=== PATIENT | female | born 1990 | race African-American/Black ===

== ENCOUNTER → 2017-06-12 18:00 | Observation (INO) ==
--- NOTE | 2017-06-12 15:56 | OB/GYN Progress Note ---
Date of Encounter: 06/12/17 Time of Encounter: 17:30 - Assessment and Plan (1) with 21 completed weeks gestation Current Visit: Yes Status: Acute Asymptomatic since arrival Reports positive movement No vaginal bleeding or loss of fluid (2) Elevated blood pressure affecting in second trimester, antepartum Current Visit: Yes Status: Acute Patient blood pressure is 140/80 at home, here as been 100's/70's Asymptomatic since arrival Reports positive movement No vaginal bleeding or loss of fluid Subjective - Subjective Principal diagnosis: gestation 21 weeks Interval history: Pt is a 26F at 21+5 GA presenting to L&D from the ED for evaluation of symptoms of double vision and spinning that occurred prior to arrival with elevated blood pressure. 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 She states her nursing preceptor took her blood pressure and it was 140/80 and squad was called. Since being in L&D patient denies any symptoms or concerns. Vision changes and elevated blood pressure have resolved. Patient denies headache, nausea, vomiting, abdominal pain, and edema. Reports positive movement. No vaginal bleeding or loss of fluid. Patient states she has also been under added stress including black friday shopping and school finals this week. Admits to not drinking plenty of water. I examined this patient and my medical decision-making was reviewed with the Resident Physician. I agree with the documented findings, disposition and treatment plan as described except to the extent set forth below. AKOSUA Bhat Antepartum ROS: new complaints, movement normal, no loss of fluid, no vaginal bleeding, no contractions Objective - Exam FHR: auscultation normal FHR comments: FHT's in the 150s Auscultation: bilateral: normal Abdomen: Present: normal appearance, soft, gravid Uterus: Present: normal, firm. Absent: tenderness
[2017-06-12 16:32] LABS: Bilirubin,Urine Negative (Negative); Blood,Urine Negative (Negative); Clarity,Urine Clear (Clear); Color,Urine Yellow (Yellow); Glucose,Urine (UA) Normal (Normal); Ketones,Urine Negative (Negative); Leukocyte Esterase,Urine Negative (Negative); Nitrite,Urine Negative (Negative); PH,Urine 6.5 pH Units (5.0-8.0); Protein,Urine Negative (Neg-Trace); Specific Gravity,Urine 1.005 (1.010-1.025); Urobilinogen,Urine Normal (Normal)
[2017-06-12 16:50] LABS: Basophils % 0.2 %; Eosinophils # 0.1 K/mcL (0.0-0.6); Hematocrit 31.6 % (35.3-44.9); Hemoglobin 9.8 g/dL (11.5-15.4); Immature Granulocytes % 0.7 % (0-4); Lymphocytes # 2.1 K/mcL (0.6-4.6); Lymphocytes % 22.7 %; Mean Corpuscular Hemoglobin 24.1 pg (28.0-33.3); Mean Corpuscular Volume 77.8 fL (83.0-100.0); Mean Platelet Volume 9.3 fL (9.4-12.4); Monocytes # 0.8 K/mcL (0.0-1.3); Monocytes % 8.2 %; Neutrophils # 6.2 K/mcL (1.6-8.9); Platelet Count 303 K/mcL (140-400); Red Blood Count 4.06 M/mcL (3.82-4.97); Red Cell Distribution Width 24.2 % (11.5-14.5); Segmented Neutrophils % 67.2 %
[2017-06-12 17:00] LABS: Amphetamine Screen,Urine Negative ng/mL (Cutoff=1000); Barbiturate Screen,Urine Negative ng/mL (Cutoff=200); Benzodiazepines Screen,Urine Negative ng/mL (Cutoff=200); Cannabinoid Screen,Urine Negative ng/mL (Cutoff = 50); Cocaine Screen,Urine Negative ng/mL (Cutoff= 300); Opiate Screen,Urine Negative ng/mL (Cutoff=300); Phencyclidine Screen,Urine Negative ng/mL (Cutoff=25)
[2017-06-12 17:33] LABS: Anisocytosis 2+ (Not Present); Platelet Estimate Normal (Normal)
[2017-06-12 17:34] LABS: Ovalocytes 1+ (Not Present)
--- NOTE | 2017-06-12 18:00 | Discharge Summary ---
Date of Encounter: 06/12/17 Time of Encounter: 18:00 - Discharge Diagnosis (1) with 21 completed weeks gestation Priority: Primary Status: Acute Comments: admitted for observation (2) Elevated blood pressure affecting in second trimester, antepartum Priority: Secondary Status: Acute Comments: normal BPs during observation Patient denies any symptoms of PIH Platelets WNL - Discharge Medications Home Medications: Ferrous Sulfate [Iron] 1 tab PO BID 06/12/17 [History] Allergies/Adverse Reactions: 3 Allergy/AdvReac Type Severity Reaction Status Date / Time No Known Allergies Allergy Verified 06/12/17 15:58 Data Procedures and tests throughout hospitalization: Laboratory Tests 06/12/17 06/12/17 06/12/17 16:05 16:05 16:30 WBC 9.2 RBC 4.06 Hgb 9.8 L Hct 31.6 L MCV 77.8 L MCH 24.1 L MCHC 31.0 L RDW 24.2 H Plt Count 303 MPV 9.3 L Immature Gran % 0.7 Seg Neutrophils % 67.2 Lymphocytes % 22.7 Monocytes % 8.2 Eosinophils % 1.0 Basophils % 0.2 Neutrophils # 6.2 Lymphocytes # 2.1 Monocytes # 0.8 Eosinophils # 0.1 Basophils # 0.0 Platelet Estimate Normal Anisocytosis 2+ A Ovalocytes 1+ A Urine Color Yellow Urine Clarity Clear Urine pH 6.5 Ur Specific [place] 1.005 L Urine Protein Negative Urine Glucose (UA) Normal Urine Ketones Negative Urine Blood Negative Urine Nitrite Negative Urine Bilirubin Negative Urine Urobilinogen Normal Ur Leukocyte Esterase Negative Ur Culture Indicated? NO Urine Opiates Screen Negative Ur Barbiturates Screen Negative Ur Phencyclidine Scrn Negative Ur Amphetamines Screen Negative U Benzodiazepines Scrn Negative Urine Cocaine Screen Negative U Marijuana (THC) Screen Negative Labs on day of discharge: Labs from last 24 hours 06/12/17 06/12/17 06/12/17 16:30 16:05 16:05 WBC 9.2 RBC 4.06 Hgb 9.8 L Hct 31.6 L MCV 77.8 L MCH 24.1 L MCHC 31.0 L RDW 24.2 H Plt Count 303 MPV 9.3 L Immature Gran % 0.7 Seg Neutrophils % 67.2 Lymphocytes % 22.7 Monocytes % 8.2 Eosinophils % 1.0 Basophils % 0.2 Neutrophils # 6.2 Lymphocytes # 2.1 Monocytes # 0.8 Eosinophils # 0.1 Basophils # 0.0 Platelet Estimate Normal Anisocytosis 2+ A Ovalocytes 1+ A Urine Color Yellow Urine Clarity Clear Urine pH 6.5 Ur Specific [place] 1.005 L Urine Protein Negative Urine Glucose (UA) Normal Urine Ketones Negative Urine Blood Negative Urine Nitrite Negative Urine Bilirubin Negative Urine Urobilinogen Normal Ur Leukocyte Esterase Negative Ur Culture Indicated? NO Urine Opiates Screen Negative Ur Barbiturates Screen Negative Ur Phencyclidine Scrn Negative Ur Amphetamines Screen Negative U Benzodiazepines Scrn Negative Urine Cocaine Screen Negative U Marijuana (THC) Screen Negative Date of admission: 06/12/17 15:32 Primary care physician: PCP NONE Discharging clinician: Paige Hackett Anticipated date of discharge: 06/12/17 - Patient Status Disposition: Home, Self-Care Condition: Good Functional capacity at discharge: independent ambulation - Discharge Instructions Follow Up With: NONE,PCP [Primary Care Provider] - Donna Rider CNM [Non-Partnered Physician] - Additional Instructions: LABOR AND DELIVERY DISCHARGE INSTRUCTIONS Signs and Symptoms to be Reported to your Doctor Immediately: * Sudden gush, continuous or intermittent lead of fluid from vagina (note the time of gush and color of fluid) * Onset of bright red vaginal bleeding with or without pain (if you had a vaginal exam during this visit you may notice some dark red spotting. This is normal.) * Lower abdominal cramping or backache that is premenstrual-like feeling. * More than 6 contractions in one hour. * Burning during urination, having to urinate more frequently or pain in your mid-back. * A change in the baby's activity. This could be an increase or decrease in activity. * Severe headache which does not go away with tylenol. * Sudden swelling in the face, hands, arms and/or legs. * Upper abdominal pain - sometimes associated with heartburn or nausea and is not relieved by Maalox, Mylanta or Tums. * Dizziness or blurred vision or visual disturbances (seeing stars/lights). * Kick Counts One hour after a meal, lay down on one side in a quiet place. Count the number of evgeny the baby moves during an hour. If less than 6 movements, notify your physician. Diet: *Force fluids - 8-10 tall glasses of fluid per day. May include popsicles and jello. *Limit caffeine - this includes chocolate, coffee, tea, any soft drink containing such as all mati, Hussein Yellow and Mountain Dew - Diet and Activity Activity: increase activity as tolerated Diet: regular diet Hospital Course PHYSIOGNOMIST Time Attestation: Total time spent providing and/or coordinating discharge services: Time Spent: Less than 30 minutes Exam - Constitutional General appearance IM: A&O X 3, pleasant, answers questions appropriately - VTE Reasons for not Prescribing Prophylaxis: Treatment not Indicated - Low risk for VTE
== END | disposition home or self-care (01) ==
LOC: 1NENULAB
PROVIDERS: ADMIT Obstetrics & Gynecology; ATTEND Obstetrics & Gynecology

== ENCOUNTER 2017-09-22 16:27 | Observation (INO) ==
[2017-09-22 17:22] LABS: Bilirubin,Urine Negative (Negative); Blood,Urine Negative (Negative); Clarity,Urine Clear (Clear); Color,Urine Yellow (Yellow); Glucose,Urine (UA) Normal (Normal); Ketones,Urine Negative (Negative); Leukocyte Esterase,Urine Moderate (Negative); Nitrite,Urine Negative (Negative); Protein,Urine Negative (Neg-Trace); Specific Gravity,Urine 1.016 (1.010-1.025); Urobilinogen,Urine Normal (Normal)
[2017-09-22 17:25] LABS: Bacteria,Urine None Seen per hpf (None-Few); Hyaline Casts,Urine None Seen per lpf (None-Few); RBC,Urine 0-3 per hpf (0-3); Squamous Epithelial Cell,Urine Many per lpf (None-Few)
[2017-09-22 17:27] LABS: Amphetamine Screen,Urine Negative ng/mL (Cutoff=1000); Barbiturate Screen,Urine Negative ng/mL (Cutoff=200); Benzodiazepines Screen,Urine Negative ng/mL (Cutoff=200); Cannabinoid Screen,Urine Negative ng/mL (Cutoff = 50); Cocaine Screen,Urine Negative ng/mL (Cutoff= 300); Opiate Screen,Urine Negative ng/mL (Cutoff=300); Phencyclidine Screen,Urine Negative ng/mL (Cutoff=25)
--- NOTE | 2017-09-22 17:39 | OB/GYN History & Physical ---
Date of Encounter: 09/22/17 Time of Encounter: 17:32 Assessment and Plan (1) 36 weeks gestation of Current visit: Yes Status: Acute NST reactive; category I tracing Serial cervical exams Pain control Rule out labor (2) Uterine contractions during Current visit: Yes Status: Acute History of Present Illness Chief complaint: Contractions HPI: Ms. Franklin is a 26 year old at 36 weeks 2 days that gestation that presents to labor and delivery with contractions every 2-3 minutes. She has had two normal planned for home previously without any complications. She desires a natural labor with minimal interventions. This has been complicated by anemia in the first trimester which resolved by the end of the second trimester, and a mildly elevated 1 hour GTT. She states positive movement. She denies headaches, vision changes, epigastric pain, leaking of fluid, and vaginal bleeding. Labs: GBS unknown Hep B NR HIV NR RPR Neg Rubella positive Varicella positive Blood type B+ Past Med Surg Social Fam HX - Past Medical History Medical history: asthma Psychiatric history: no psych history - Social History Smoking Status: Former smoker Smokeless Tobacco Status: No Alcohol use: none Drug use: none - Family History Mother Adopted: [place]: Danie Portillo Family Member Ethnicity: Non- Living Status: Still Living Hx Family Cardiac Disorders: Yes Hx Family Respiratory Disorders: No Hx Family Cancer: Yes Hx Family GI Disorders: No Hx Family Genitourinary Disorders: Yes Hx Family Endocrine Disorder: No Hx Family Musculoskeletal Disorders: No Hx Family Neuromuscular Disorders: No Hx Family Neurologic Disorders: No Hx Family HEENT Disorders: No Hx Family Autoimmune Disorders: No Hx Family Reproductive Disorders: No Hx Family Psychosocial Disorders: No Obstetrical History - Pregnancies : 3 Para: 2 Term: 2 : 0 Ab's: 0 Livin Medications and Allergies Ferrous Sulfate [Iron] 1 tab PO BID 06/12/17 [History] Vitamins 4 tab PO DAILY 09/22/17 [History] 3 Allergy/AdvReac Type Severity Reaction Status Date / Time No Known Allergies Allergy Verified 06/12/17 15:58 Review of System OB All systems PM: reviewed and no additional remarkable complaints except as stated Exam - Constitutional Constitutional: well developed, well nourished, average body habitus, moderate distress - HEENT HEENT: Normocephaly, Mucus Membranes Moist - Neck Neck exam: full ROM - Lungs Respiratory exam: CTAB - Cardiovascular Cardiovascular exam: RRR, +S1, +S2 - Abdomen Abdomen: Present: bowel sounds normal, gravid, non tender - Extremities Extremities exam: normal capillary refill, normal inspection, radial pulses palpable and symmetrical Deep Tendon Reflex Grade: 2+ Normal - Vagina Vagina: Present: normal moisture - Cervix Dilation: 2 (2-3) Effacement: 60 Station: -2 - Uterus Uterus exam: Present: normal size, normal contour. Absent: tender - Anus/Rectum Anus/Rectum: Present: normal perianal skin Results Abnormal lab results Ur Leukocyte Esterase Moderate (Negative) H 09/22/17 16:52 Urine Microscopic WBC 3-5 per hpf (0-3) H 09/22/17 16:52 Ur Squamous Epith Cells Many per lpf (None-Few) H 09/22/17 16:52 All other labs normal. - VTE Reasons for not Prescribing Prophylaxis: Treatment not Indicated - Low risk for VTE
[2017-09-22] MEDS ORDERED: Naloxone 0.4 MG/ML INJ IVP PRN (20:01)
[2017-09-22] MEDS ORDERED: Famotidine 20 MG/2 ML VIAL IVP PRN (20:01)
[2017-09-22] MEDS ORDERED: Metoclopramide 10 MG/2 ML VIAL IVP PRN (20:07)
[2017-09-22] MEDS ORDERED: Ondansetron 4 MG/2 ML VIAL IVP PRN (20:07)
[2017-09-22] MEDS ORDERED: *HR* Nalbuphine 20 MG/ML AMPUL IVP PRN (20:07)
[2017-09-22] MEDS ORDERED: Lidocaine 1% 20 ML MDV INFILT PRN (20:07)
[2017-09-22] MEDS: Magnesium Oxide 400 MG TABLET PO SCH ×2 (20:10)
[2017-09-22] MEDS ORDERED: Ringers Solution, Lactated 1,000 ML IVC SCH (20:15)
--- NOTE | 2017-09-22 20:15 | OB Labor Progress Note ---
Date of Encounter: 09/22/17 Time of Encounter: 20:10 Labor Progress Note - Subjective Subjective: Patient breathing through contractions. States they have spaced since arriving , but have increased in intensity. - Vital Signs Vital Signs: VSS - Cervix Cervix: 3-4/70/-2 - Heart Tones Heart Tones: baseline 155 category I tracing - Benjamin Perez Benjamin Perez: Contractions every 3-4 minutes - Plan Plan: Admit to labor and delivery Patient may have epidural/nubain upon request Patient requests minimal interventions and at this time declines epidural, IV pain medication, pitocin, AROM Anticipate vaginal delivery POC per consult with Dr Tavarez
[2017-09-22 21:41] LABS: Basophils % 0.3 %; Eosinophils # 0.1 K/mcL (0.0-0.6); Eosinophils % 0.6 %; Hematocrit 30.7 % (35.3-44.9); Hemoglobin 9.7 g/dL (11.5-15.4); Immature Granulocytes % 0.9 % (0-4); Lymphocytes # 3.3 K/mcL (0.6-4.6); Lymphocytes % 23.5 %; Mean Corpuscular HGB Conc 31.6 g/dL (31.6-35.5); Mean Corpuscular Hemoglobin 26.1 pg (28.0-33.3); Mean Corpuscular Volume 82.5 fL (83.0-100.0); Mean Platelet Volume 9.8 fL (9.4-12.4); Monocytes % 7.3 %; Neutrophils # 9.5 K/mcL (1.6-8.9); Platelet Count 306 K/mcL (140-400); Red Blood Count 3.72 M/mcL (3.82-4.97); Red Cell Distribution Width 14.6 % (11.5-14.5); Segmented Neutrophils % 67.4 %
[2017-09-22] MEDS ORDERED: Penicillin G Potassium 5,000,000 UNIT in 0.9 % Sodium Chloride Mini Bag 100 ML IVPB ONE (23:32)
[2017-09-23] MEDS ORDERED: Penicillin G Potassium 2,500,000 UNIT in 0.9 % Sodium Chloride 100 ML IVPB SCH (04:00)
--- NOTE | 2017-09-23 06:55 | OB Labor Progress Note ---
Date of Encounter: 09/23/17 Time of Encounter: 06:53 Labor Progress Note - Subjective Subjective: Miss Franklin is breathing through her contractions and states they are increasing in intensity. - Vital Signs Vital Signs: VSS - Cervix Cervix: 4/70/-1 posterior firm - Heart Tones Heart Tones: 155 moderate variability category I - [place]: Contractions every 4 minutes - Plan Plan: Discussed labor with patient without cervical change in the past 6 hours. Reactive NST. Patient is agreeable to discharge home and return if contractions increase in intensity/frequency, if bloody show occurs, if vaginal/rectal pressure occurs, or if patient has any concerns. labor precautions given. Will follow up in the office on Friday or labor/delivery PRN.
== END 2017-09-23 07:04 | disposition home or self-care (01) ==
LOC: 1NENULAB
PROVIDERS: ADMIT Student in an Organized Health Care Education/Training Program; ATTEND Student in an Organized Health Care Education/Training Program

== ENCOUNTER 2017-09-24 20:06 | Observation (INO) ==
[2017-09-24 20:49] LABS: Bilirubin,Urine Negative (Negative); Blood,Urine Negative (Negative); Clarity,Urine Cloudy (Clear); Color,Urine Yellow (Yellow); Glucose,Urine (UA) Normal (Normal); Ketones,Urine >=160 mg/dL (Negative); Leukocyte Esterase,Urine Small (Negative); Nitrite,Urine Negative (Negative); Protein,Urine Negative (Neg-Trace); Specific Gravity,Urine 1.025 (1.010-1.025); Urobilinogen,Urine Normal (Normal)
[2017-09-24 20:51] LABS: Bacteria,Urine None Seen per hpf (None-Few); Hyaline Casts,Urine Few per lpf (None-Few); RBC,Urine 0-3 per hpf (0-3); Squamous Epithelial Cell,Urine Many per lpf (None-Few)
[2017-09-24 21:01] LABS: Amphetamine Screen,Urine Negative ng/mL (Cutoff=1000); Barbiturate Screen,Urine Negative ng/mL (Cutoff=200); Benzodiazepines Screen,Urine Negative ng/mL (Cutoff=200); Cannabinoid Screen,Urine Negative ng/mL (Cutoff = 50); Cocaine Screen,Urine Negative ng/mL (Cutoff= 300); Opiate Screen,Urine Negative ng/mL (Cutoff=300); Phencyclidine Screen,Urine Negative ng/mL (Cutoff=25)
--- NOTE | 2017-09-24 22:21 | OB/GYN Progress Note ---
Date of Encounter: 09/24/17 Time of Encounter: 22:19 - Assessment and Plan (1) 36 weeks gestation of Current Visit: No Status: Acute (2) Uterine contractions during Current Visit: No Status: Acute SVE with no change after 2 hours. Discharge home with precautions. Subjective - Subjective Principal diagnosis: contractions Interval history: 26 year-old presenting at 36w4d with c/o contractions every 2-3 minutes and pelvic pressure. She denies LOF or VB. Good FM. No other complaints. Antepartum ROS: movement normal, contractions, no loss of fluid, no vaginal bleeding Objective - Vital Signs Vital Signs: Intake and Output 09/24/17 09/24/17 09/24/17 07:59 15:59 23:59 Other: Weight 63.2 kg Patient Weight 09/24/17 23:59 Weight 63.2 kg - Exam FHR: category 1 FHR comments: NST reactive Auscultation: bilateral: normal Abdomen: Present: soft, gravid Uterus: Absent: tenderness Cervical dilation: 3-4 Cervix effacement: 80 station: -1 - Labs Labs: Abnormal lab results Urine Clarity Cloudy (Clear) A 09/24/17 20:25 Urine Ketones >=160 mg/dL (Negative) H 09/24/17 20:25 Ur Leukocyte Esterase Small (Negative) H 09/24/17 20:25 Urine Microscopic WBC 5-15 per hpf (0-3) H 09/24/17 20:25 Ur Squamous Epith Cells Many per lpf (None-Few) H 09/24/17 20:25
== END 2017-09-24 22:35 | disposition home or self-care (01) ==
LOC: 1NENULAB
PROVIDERS: ADMIT Registered Nurse; ATTEND Registered Nurse

== ENCOUNTER 2017-10-10 14:31 | Observation (INO) ==
[2017-10-10] MEDS ORDERED: Magnesium Oxide 400 MG TABLET PO PRN (14:44)
[2017-10-10] MEDS ORDERED: Acetaminophen 325 MG TABLET PO ONE (14:44)
[2017-10-10 15:14] LABS: Basophils % 0.3 %; Eosinophils % 0.4 %; Hematocrit 34.6 % (35.3-44.9); Hemoglobin 10.9 g/dL (11.5-15.4); Immature Granulocytes % 0.6 % (0-4); Lymphocytes # 2.4 K/mcL (0.6-4.6); Lymphocytes % 21.3 %; Mean Corpuscular HGB Conc 31.5 g/dL (31.6-35.5); Mean Corpuscular Hemoglobin 26.5 pg (28.0-33.3); Mean Corpuscular Volume 84.2 fL (83.0-100.0); Mean Platelet Volume 9.9 fL (9.4-12.4); Monocytes # 0.9 K/mcL (0.0-1.3); Neutrophils # 7.8 K/mcL (1.6-8.9); Platelet Count 311 K/mcL (140-400); Red Blood Count 4.11 M/mcL (3.82-4.97); Red Cell Distribution Width 15.4 % (11.5-14.5); Segmented Neutrophils % 69.4 %
[2017-10-10] MEDS ORDERED: Ringers Solution, Lactated 1,000 ML IVC SCH (15:30)
[2017-10-10 15:55] LABS: Amphetamine Screen,Urine Negative ng/mL (Cutoff=1000); Barbiturate Screen,Urine Negative ng/mL (Cutoff=200); Benzodiazepines Screen,Urine Negative ng/mL (Cutoff=200); Cannabinoid Screen,Urine Negative ng/mL (Cutoff = 50); Cocaine Screen,Urine Negative ng/mL (Cutoff= 300); Opiate Screen,Urine Negative ng/mL (Cutoff=300); Phencyclidine Screen,Urine Negative ng/mL (Cutoff=25)
--- NOTE | 2017-10-10 18:15 | OB/GYN Progress Note ---
Date of Encounter: 10/10/17 Time of Encounter: 18:12 - Assessment and Plan (1) Dehydration during Current Visit: Yes Status: Acute Rehydrated with 1L LR intravenous. Encouraged oral hydration at home. Discharge home with labor precautions. Follow up in office as scheduled and PRN. (2) Uterine contractions during Current Visit: No Status: Acute No cervical change from office this afternoon. Discharge home with labor precautions (3) 38 weeks gestation of Current Visit: Yes Status: Acute Subjective - Subjective Principal diagnosis: Tachypnea, Dyspnea, and Tachycardia upon exertion in office Interval history: Ms Frnaklin is a at 38 weeks and 6 days gestation that presents to triage from the office with c/o of dyspnea, tachypnea, and tachycardia to 140 upon exertion. She denies any recent exposure to any sickness that she is aware of. She denies fevers and chills in recent history. She states positive movement. She denies headaches, vision changes, epigastric pain, vaginal bleeding, and leaking. She c/o irregular contractions for the past 3 weeks. Antepartum ROS: new complaints, movement normal, contractions (irregular) , no loss of fluid, no vaginal bleeding Objective - Vital Signs Vital Signs: Intake and Output 10/10/17 10/10/17 10/10/17 07:59 15:59 23:59 Other: Weight 64.2 kg Patient Weight 10/10/17 23:59 Weight 64.2 kg - Exam FHR: auscultation normal, category 1 FHR comments: Baseline 155; irregular contractions Auscultation: bilateral: normal Abdomen: Present: normal appearance, soft, gravid Uterus: Present: normal. Absent: firm, bogginess, tenderness Cervical dilation: 4-5 Cervix effacement: 80 station: -1 - Labs Labs: Abnormal lab results WBC 11.3 K/mcL (4.3-11.1) H 10/10/17 15:02 Hgb 10.9 g/dL (11.5-15.4) L 10/10/17 15:02 Hct 34.6 % (35.3-44.9) L 10/10/17 15:02 MCH 26.5 pg (28.0-33.3) L 10/10/17 15:02 MCHC 31.5 g/dL (31.6-35.5) L 10/10/17 15:02 RDW 15.4 % (11.5-14.5) H 10/10/17 15:02
--- NOTE | 2017-10-14 07:57 | Electrocardiograph Report ---
[place] [id number] Test Date: 2017-10-10 Pat Name: Yadira Franklin Department: 101 Room: [facility] Gender: F Lettuce Cutter: : 1990 Requested By: Dorothy Barrientos Order Number: [id number] Reading MD: Sheldon Nixon Measurements Intervals [place] Rate: 110 P: 64 [place]: 126 QRS: 75 QRSD: 72 T: 1 QT: 315 QTc: 380 Interpretive Statements SINUS TACHYCARDIA ABNORMAL RHYTHM ECG Electronically Signed On 10-14-2017 7:55:45 EDT by Sheldon Nixon
== END 2017-10-10 18:28 | disposition home or self-care (01) ==
LOC: 1NENULAB
PROVIDERS: ADMIT Obstetrics & Gynecology; ATTEND Obstetrics & Gynecology

== ENCOUNTER 2017-10-11 15:21 | Inpatient (IN) ==
[~2017-10-11 15:21] MED LIST: Famotidine 20 MG/2 ML VIAL IVP PRN; Naloxone 0.4 MG/ML INJ IVP PRN
[2017-10-11] MEDS ORDERED: Ringers Solution, Lactated 1,000 ML IVC SCH (15:30)
--- NOTE | 2017-10-11 15:31 | OB/GYN History & Physical ---
Date of Encounter: 10/11/17 Time of Encounter: 15:22 Assessment and Plan (1) 39 weeks gestation of Current visit: Yes Status: Acute (2) Uterine contractions during Current visit: No Status: Acute Admit to labor and delivery Epidural and Nubain as desires Start pitocin after epidural per policy Anticipate . History of Present Illness Chief complaint: Contractions HPI: Ms. Franklin is a 26 year old female 39+0 presents to triage with complaints of continuing contractions. Pt states her contractions have been 3-7 minutes apart since last night and has not slept and they hare very painful when they occur. Pt requesting pain management. Pt states she had wanted a natural unmedicated labor but now "just wants drugs and this baby out". course complicated by anemia, Labs: B+, Varicella and Rubella immune, GBS-, all other serologies negative. Past Med Surg Social Fam HX - Past Medical History Medical history: asthma Psychiatric history: no psych history - Past Surgical History Surgical History: no surgical history - Social History Smoking Status: Former smoker Smokeless Tobacco Status: No Alcohol use: none Drug use: none - Family History Mother Adopted: Yes Family Member Ethnicity: Non- Living Status: Still Living Hx Family Cardiac Disorders: No Hx Family Respiratory Disorders: No Hx Family Cancer: No Hx Family GI Disorders: No Hx Family Genitourinary Disorders: No Hx Family Endocrine Disorder: No Hx Family Musculoskeletal Disorders: No Hx Family Neuromuscular Disorders: No Hx Family Neurologic Disorders: No Hx Family HEENT Disorders: No Hx Family Autoimmune Disorders: No Hx Family Reproductive Disorders: No Hx Family Psychosocial Disorders: No Hx Family Medical Disorders: No Obstetrical History - Pregnancies : 3 Para: 2 Term: 2 : 0 Ab's: 2 Livin Medications and Allergies Ferrous Sulfate [Iron] 1 tab PO BID 06/12/17 [History] Vitamins 1 tab PO DAILY 09/22/17 [History] 3 Allergy/AdvReac Type Severity Reaction Status Date / Time No Known Allergies Allergy Verified 06/12/17 15:58 Exam - Constitutional Constitutional: well developed, well nourished, no acute distress, average body habitus - Neck Neck exam: full ROM - Lungs Respiratory exam: CTAB - Cardiovascular Cardiovascular exam: RRR - Abdomen Abdomen: Present: bowel sounds normal, gravid, non tender - Extremities Extremities exam: normal capillary refill, normal inspection Deep Tendon Reflex Grade: 2+ Normal - Vagina Vagina: Present: normal moisture - Cervix Dilation: 4 Effacement: 80 Station: -1 - Uterus Uterus exam: Present: normal size, normal contour Results All other labs normal.
[2017-10-11 15:48] LABS: Basophils % 0.2 %; Eosinophils % 0.3 %; Hematocrit 34.1 % (35.3-44.9); Hemoglobin 10.9 g/dL (11.5-15.4); Immature Granulocytes % 0.5 % (0-4); Lymphocytes # 2.4 K/mcL (0.6-4.6); Mean Corpuscular Hemoglobin 26.7 pg (28.0-33.3); Mean Corpuscular Volume 83.4 fL (83.0-100.0); Monocytes % 7.7 %; Neutrophils # 9.8 K/mcL (1.6-8.9); Platelet Count 308 K/mcL (140-400); Red Blood Count 4.09 M/mcL (3.82-4.97); Red Cell Distribution Width 15.4 % (11.5-14.5); Segmented Neutrophils % 73.3 %
[2017-10-11 15:53] LABS: Amphetamine Screen,Urine Negative ng/mL (Cutoff=1000); Barbiturate Screen,Urine Negative ng/mL (Cutoff=200); Benzodiazepines Screen,Urine Negative ng/mL (Cutoff=200); Cannabinoid Screen,Urine Negative ng/mL (Cutoff = 50); Cocaine Screen,Urine Negative ng/mL (Cutoff= 300); Opiate Screen,Urine Negative ng/mL (Cutoff=300); Phencyclidine Screen,Urine Negative ng/mL (Cutoff=25)
[2017-10-11] MEDS ORDERED: Epidural Premix (fent/bupiv) 110 ML EP ONE (16:06)
[2017-10-11] MEDS ORDERED: Lidocaine 1% 20 ML MDV INFILT PRN (16:20)
[2017-10-11] MEDS ORDERED: Ondansetron 4 MG/2 ML VIAL IVP PRN ×2 (16:20→23:54)
[2017-10-11] MEDS ORDERED: Oxytocin 20 units/ LR 1000 mL 20 UNIT/1,000 ML BAG IVC SCH ×3 (16:30→23:54)
--- NOTE | 2017-10-11 16:45 | Anesthesia Evaluation PreOp ---
Date of Encounter: 10/11/17 Time of Encounter: 16:18 - Past History Planned Operation: vaginal del, induction Cardiac History: Denies any Significant Hx, Other (hx. of vasovagal eposides just with ,) Pulmonary History: Denies Any Significant HX SHROUD LINE TIER History: Denies Any Significant HX Other Medical History: Denies Any Significant HX Anesthesia History: No Prior Anesthetic Complications, Past Anesthesia (home deliveries. x2, T/A) Alcohol Use: none Drug use: none Medications and Allergies Ferrous Sulfate [Iron] 1 tab PO BID 06/12/17 [History] Vitamins 1 tab PO DAILY 09/22/17 [History] 3 Allergy/AdvReac Type Severity Reaction Status Date / Time No Known Allergies Allergy Verified 06/12/17 15:58 Anesthesia Results - Labs 10/11/17 15:22 Anesthesia Exam - HEENT Pupil (Motor): Pupils equal Mallampati: II Teeth: Normal (couple in back loose, and chip according to patient.) Oral Opening: Greater than 3 - SHROUD LINE TIER LOC: Oriented SHROUD LINE TIER Motor: Normal RUE, Normal LUE, Normal RLE, Normal LLE, Normal Face SHROUD LINE TIER Sensory: Normal: RUE, LUE, RLE, LLE, Face - Cardiac Rhythm: Regular Murmur: None - Pulmonary Breath Sounds: bilateral Clear Respiratory Effort: Symmetrical Anesthesia Assess/Plan ASA Score: 2 Modified Josh Scale for Level of Consciousness: Cooperative, oriented, and tranquil Anesthetic Plan: General, Regional Monitoring Plan: Standard Monitors Recovery Plan: PACU
--- NOTE | 2017-10-11 16:54 | Anesthesia Procedures ---
Date of Encounter: 10/11/17 Time of Encounter: 16:18 Procedures: Anesthesia - Epidural/Spinal Patient ID/Chart reviewed: Yes Patient examined: Yes OB Eval: Gestational age: term OB Eval: : 3 OB Eval: Hx Para: 2 OB Eval: Contractions: Non-stressed pattern Consent Obtained: Yes Supplemental Oxygen: None/Room Air Site Prep: Aseptic Technique, Sterile prep and drape, 0.5% Chlorhexidine/Alcohol Patient position: upright Local Anesthetic: Lidocaine 1% Amount of Local Anesthetic used: 2 Touhy Needle Gauge: 18 Touhy Needle Depth (cm): 6 Catheter Depth at Skin (cm): 10 Test Dose (1.5% Lido + Epi): Volume given (mls): 3 Test Dose Result: Negative Loading Dose: Other: 10ml from solutions Loading Dose Administered: Thru Catheter Infusion Med: 0.125% Bupivacaine w/ 2 mcg/ml Fentanyl Infusion Rate (mls/hr): [address]: Tegaderm, Tape Interspace Used: L3-L4 Loss of Resistance (YESSICA): Yes (saline) Blood: No CSF: No Paresthesia: No Procedure: vss though out, FHR stable per RN;s
--- NOTE | 2017-10-11 18:32 | OB Labor Progress Note ---
Date of Encounter: 10/11/17 Time of Encounter: 18:30 Labor Progress Note - Subjective Subjective: Pt comfortable with epidural - Cervix Cervix: 5/80/-2 - Heart Tones Heart Tones: 135/moderate/+accels/-decels - Watkins Watkins: 2-4 - Interventions Interventions: AROM for moderate amount clear fluid - Plan Plan: Continue pitocin per policy Frequent repositioning with peanut ball Anticipate
[2017-10-11] MEDS ORDERED: Ibuprofen 600 MG TABLET PO PRN (22:33)
[2017-10-11] MEDS ORDERED: Benzocaine/Menthol 56 GM AEROSOL SPRAY TP PRN ×2 (22:33→23:54)
[2017-10-11] MEDS ORDERED: Lanolin 7 G OINT...G. TP PRN ×2 (22:33→23:54)
[2017-10-11] MEDS ORDERED: Acetaminophen 325 MG TABLET PO PRN ×2 (22:33→23:54)
--- NOTE | 2017-10-11 22:38 | OB/GYN Procedure Note ---
Delivery - Delivery Date: 10/11/17 Provider: Chichi Ron Intrapartum events: none Delivery induction: none Delivery augmentation: rupture of membranes, pitocin Delivery monitor: external FHT, external uterine Anesthesia: epidural Estimated Blood Loss: 100 - (s) A Infant Delivery Date: 10/11/17 Delivery Time: 22:22 Presentation: vertex Position: OA Route of delivery: Gender: Male Viability: Viable Pounds: 8 Ounces: 9 Weight Gram: 3880 kg at 1 minute: 6 at 5 mins: 9 Shoulder Dystocia: not encountered Specimens collected: cord blood Placenta: spontaneous Cord: 3 umbilical vessels - Repair Episiotomy: none Laceration Description: Superficial - Complications Delivery complications: none Delivery comments: Admitted with contractions, augmentation with AROM and pitocin, progressed to complete, maternal bearing down efforts to of liveborn male, Vertex delivered OA, with a compound right hand presentation. Shoulders and body easily followed, No nuchal cord or shoulder dystocia encountered. Infant with low tone, placed on maternal abdomen, cord clammped and cut with infant taken to warmer for resuscitation measures. APGARS 7/9. Placenta delivered spontaneously (tammie) complete upon inspection. superficial laceration noted to perineum, left homeostatic and unrepaired. EBL 100. Mother and infant left bonding in labor and delivery. - Disposition Mom disposition: stable in LDR [place] disposition: stable in LDR
[2017-10-12] MEDS: Ibuprofen 600 MG TABLET PO PRN ×3 (07:15→19:42)
--- NOTE | 2017-10-12 07:50 | OB/GYN Progress Note ---
Date of Encounter: 10/12/17 Time of Encounter: 07:47 - Assessment and Plan (1) 39 weeks gestation of Current Visit: Yes Status: Acute (2) Vaginal delivery Current Visit: Yes Status: Acute Stable PPD #1 Continue current management Anticipate discharge tomorrow. Subjective - Subjective Interval history: Pain well managed on po pain medications. Bleeding has decreased, . Patient reports: appetite normal, voiding normally, pain well controlled, ambulating normally Glen: doing well Objective - Latest Vital Signs Latest vital signs: Vital Signs Temp Pulse Resp BP Pulse Ox 10/12/17 03:20 98.9 F 86 20 106/66 96 10/12/17 02:15 99.2 F 86 20 107/66 98 10/12/17 01:45 100.5 F H 99 20 97/57 97 Intake and Output 10/11/17 10/11/17 10/12/17 15:59 23:59 07:59 Intake Total 240 / 240 Output Total 850 / 850 Balance -610 / -610 Intake: Oral 240 / 240 Output: Urine 850 / 850 Other: Weight 63.8 kg 61.779 kg Patient Weight 10/12/17 23:59 Weight 61.779 kg - Exam Lungs: bilateral: normal Chest: Normal S1, Normal S2 Extremities: Present: normal Abdomen: Present: normal appearance, soft Uterus: Present: normal, firm Uterus Position: At Umbilicus - Labs Labs: Laboratory Results - last 24 hr 10/11/17 10/11/17 15:21 15:22 WBC 13.3 H RBC 4.09 Hgb 10.9 L Hct 34.1 L MCV 83.4 MCH 26.7 L MCHC 32.0 RDW 15.4 H Plt Count 308 MPV 10.0 Immature Gran % 0.5 Seg Neutrophils % 73.3 Lymphocytes % 18.0 Monocytes % 7.7 Eosinophils % 0.3 Basophils % 0.2 Neutrophils # 9.8 H Lymphocytes # 2.4 Monocytes # 1.0 Eosinophils # 0.0 Basophils # 0.0 Urine Opiates Screen Negative Ur Barbiturates Screen Negative Ur Phencyclidine Scrn Negative Ur Amphetamines Screen Negative U Benzodiazepines Scrn Negative Urine Cocaine Screen Negative U Marijuana (THC) Screen Negative
[2017-10-12] MEDS ORDERED: Prenatal Vit/FA 1 EACH TABLET PO SCH (09:00)
[2017-10-12] MEDS: Prenatal Vit/FA 1 EACH TABLET PO SCH (10:00)
[2017-10-13] MEDS: Prenatal Vit/FA 1 EACH TABLET PO SCH (07:41)
[2017-10-13] MEDS: Ibuprofen 600 MG TABLET PO PRN (07:41)
[2017-10-13 07:59] VITALS: BP 92/56
--- NOTE | 2017-10-13 09:00 | Discharge Summary ---
Date of Encounter: 10/13/17 Time of Encounter: 08:55 - Discharge Diagnosis (1) Vaginal delivery Priority: Primary Status: Acute Comments: Feeling well VSS Denies [place], visual disturbance or epigastric pain Voiding without difficulty States baby well Desires to go home today - Discharge Medications Prescriptions: Ibuprofen [Motrin] 600 mg PO Q6HR PRN #30 tablet PRN Reason: Cramping Docusate [Colace] 100 mg PO BID PRN #20 capsule PRN Reason: Constipation Ferrous Sulfate 325 mg PO DAILY #60 tablet Home Medications: Ferrous Sulfate [Iron] 1 tab PO BID 06/12/17 [History] Vitamins 1 tab PO DAILY 09/22/17 [History] Acetaminophen [Tylenol] 650 mg PO Q6HR PRN tablet 10/13/17 [Rx] Benzocaine/Menthol [place] [Dermoplast [place]] 1 appl TP QID PRN aerosol 10/13/17 [Rx] Docusate [Colace] 100 mg PO BID PRN #20 capsule 10/13/17 [Rx] Ferrous Sulfate 325 mg PO DAILY #60 tablet 10/13/17 [Rx] Ibuprofen [Motrin] 600 mg PO Q6HR PRN #30 tablet 10/13/17 [Rx] Lanolin [Lansinoh] 1 appl TP QID PRN oint...g. 10/13/17 [Rx] Allergies/Adverse Reactions: 3 Allergy/AdvReac Type Severity Reaction Status Date / Time No Known Allergies Allergy Verified 06/12/17 15:58 Data Procedures and tests throughout hospitalization: Laboratory Tests 10/11/17 10/11/17 15:21 15:22 WBC 13.3 H RBC 4.09 Hgb 10.9 L Hct 34.1 L MCV 83.4 MCH 26.7 L MCHC 32.0 RDW 15.4 H Plt Count 308 MPV 10.0 Immature Gran % 0.5 Seg Neutrophils % 73.3 Lymphocytes % 18.0 Monocytes % 7.7 Eosinophils % 0.3 Basophils % 0.2 Neutrophils # 9.8 H Lymphocytes # 2.4 Monocytes # 1.0 Eosinophils # 0.0 Basophils # 0.0 Urine Opiates Screen Negative Ur Barbiturates Screen Negative Ur Phencyclidine Scrn Negative Ur Amphetamines Screen Negative U Benzodiazepines Scrn Negative Urine Cocaine Screen Negative U Marijuana (THC) Screen Negative Date of admission: 10/11/17 15:21 Primary care physician: PCP NONE Consults: 10/11/17 22:33 Consult to Chemistry Manager [CONS] Routine Comment: Vaginal delivery, consult needed Discharging clinician: Dorothy Barrientos Anticipated date of discharge: 10/13/17 - Patient Status Disposition: Home, Self-Care Condition: Good Functional capacity at discharge: independent ambulation Overall status at discharge: patient is progressing back to baseline - Discharge Instructions Follow Up With: NONE,PCP [Primary Care Provider] - Dorothy Barrientos CNM [Advanced Practice Nurse] - - Diet and Activity Activity: increase activity as tolerated Diet: regular diet Hospital Course Reason for admission: active labor Delivery: Episiotomy: none Laceration: none Other procedures: none complications: none Discharge diagnosis: IUP at term delivered [place] baby: male Time Attestation: Total time spent providing and/or coordinating discharge services: Time Spent: Less than 30 minutes Exam - Constitutional Vitals: Temp Pulse Resp BP Pulse Ox 98.2 F 74 16 92/56 99 10/13/17 07:58 10/13/17 07:58 10/13/17 07:58 10/13/17 07:58 10/12/17 19:40 General appearance IM: cooperative, A&O X 3, pleasant, answers questions appropriately - Respiratory Respiratory exam: Present: CTAB - Cardiovascular Cardiovascular exam IM: Present: RRR - GI/Abdominal GI/Abdominal exam IM: normal bowel sounds - Rectal Rectal exam: deferred - Uterine Tone: Firm Uterus Position: At Umbilicus - Extremities Exam Extremities exam IM: Present: full ROM, normal inspection, radial pulses palpable and symmetrical - Neurological Exam Neurological exam: alert, oriented X3, reflexes normal
== END 2017-10-13 12:00 | disposition home or self-care (01) | DRG 560 ==
LOC: 1NENULAB → 1NENUOBS 10-12 00:18
PROVIDERS: ADMIT Advanced Practice Midwife; ATTEND Advanced Practice Midwife